=== PATIENT | female | born 1960 | race Caucasian/White ===

== ENCOUNTER 2018-01-02 18:31 | Emergency (ER) | payer MEDICAID ==
[2018-01-02] MEDS ORDERED: NORMAL SALINE 1000 ML 1,000 ML IV ONE (19:43)
--- NOTE | 2018-01-02 19:45 | ER Document Report ---
ED Medical Screen (RME) - General Chief Complaint: Flu Symptoms Stated Complaint: FLU LIKE SYMPTOMS Time Seen by Provider: 01/02/18 19:43 Notes: Patient has a history of breast cancer with mastectomy. This was 10 years ago. No radiation or chemotherapy were performed. She also states she had a stroke in 2003 that initially caused her to have some balance issues but no longer bothers her. She states that her blood pressure normally runs low but she is not sure how low. She states that she has had cough congestion fevers chills weakness malaise and vomiting. TRAVEL OUTSIDE OF THE [place] IN LAST 30 DAYS: No - Related Data Allergies/Adverse Reactions: No Known Allergies Allergy (Unverified 01/02/18 18:40) Past Medical History - Social History Frequency of alcohol use: None Drug Abuse: None Renal/ Medical History: Denies: Hx Peritoneal Dialysis Physical Exam - Vital signs Vitals: Temp Pulse Resp BP Pulse Ox 98.8 F 85 18 98/59 L 93 01/02/18 18:55 01/02/18 18:55 01/02/18 18:55 01/02/18 18:55 01/02/18 18:55 Course - Vital Signs Vital signs: Temp Pulse Resp BP Pulse Ox 98.8 F 85 18 98/59 L 93 01/02/18 18:55 01/02/18 18:55 01/02/18 18:55 01/02/18 18:55 01/02/18 18:55
[2018-01-02 20:16] LABS: VENOUS BLOOD BASE EXCESS 4.1 mmol/L; VENOUS BLOOD PCO2 55.6 mmHg (35-63); VENOUS BLOOD PH 7.36 (7.30-7.42)
[2018-01-02 20:26] LABS: ABSOLUTE LYMPHOCYTES (AUTO) 0.7 10^3/uL (0.5-4.7); ABSOLUTE NEUT (AUTO) 3.9 10^3/uL (1.7-8.2); BASOPHILS % (AUTO) 0.1 % (0-2); HEMATOCRIT 43.5 % (36.0-47.0); HEMOGLOBIN 14.9 g/dL (12.0-15.5); LYMPHOCYTES % (AUTO) 11.9 % (13-45); MEAN CORPUSCULAR HEMOGLOBIN 29.5 pg (27.0-33.4); MEAN CORPUSCULAR HGB CONC 34.2 g/dL (32.0-36.0); MEAN CORPUSCULAR VOLUME 86 fl (80-97); MONOCYTES % (AUTO) 18.6 % (3-13); PLATELET COUNT 252 10^3/uL (150-450); RED BLOOD COUNT 5.03 10^6/uL (3.72-5.28); RED CELL DISTRIBUTION WIDTH 13.1 % (11.5-14.0); SEGMENTED NEUTROPHILS % (AUTO) 69.4 % (42-78); TOTAL CELLS COUNTED % (AUTO) 100 %; WHITE BLOOD COUNT 5.6 10^3/uL (4.0-10.5)
[2018-01-02 20:38] LABS: ALANINE AMINOTRANSFERASE 25 U/L (9-52); ALBUMIN 4.6 g/dL (3.5-5.0); ALKALINE PHOSPHATASE 71 U/L (38-126); ANION GAP 11 (5-19); ASPARTATE AMINO TRANSFERASE 36 U/L (14-36); BILIRUBIN,DIRECT 0.5 mg/dL (0.0-0.4); BILIRUBIN,TOTAL 0.5 mg/dL (0.2-1.3); BLOOD UREA NITROGEN 25 mg/dL (7-20); CALCIUM 9.9 mg/dL (8.4-10.2); CARBON DIOXIDE 31 mmol/L (22-30); CHLORIDE 99 mmol/L (98-107); GLUCOSE 112 mg/dL (75-110); SODIUM 140.8 mmol/L (137-145); TOTAL PROTEIN 8.2 g/dL (6.3-8.2)
[2018-01-02 20:40] LABS: APPEARANCE,URINE CLOUDY; BILIRUBIN,URINE NEGATIVE (NEGATIVE); GLUCOSE, URINE NEGATIVE (NEGATIVE); KETONES,URINE TRACE mg/dL (NEGATIVE); LEUKOCYTE ESTERASE,URINE MODERATE (NEGATIVE); NITRITE,URINE NEGATIVE (NEGATIVE); PROTEIN,URINE 30 mg/dL (NEGATIVE); URINE SPECIFIC GRAVITY 1.035; UROBILINOGEN,URINE NEGATIVE mg/dL (<2.0)
[2018-01-02 20:43] LABS: COLOR,URINE YELLOW
--- NOTE | 2018-01-02 21:05 | RADIOLOGY REPORT (SQ) ---
EXAM DESCRIPTION: CHEST PA/LAT COMPLETED DATE/TIME: 01/02/2018 8:41 pm REASON FOR STUDY: sob/hypoxia COMPARISON: None. NUMBER OF VIEWS: Two view. TECHNIQUE: Frontal and lateral radiographic views of the chest acquired. LIMITATIONS: None. FINDINGS: LUNGS AND PLEURA: No opacities, masses or pneumothorax. No pleural effusion. Attenuated bl ood vessels and flattened izzy-diaphragms. MEDIASTINUM AND HILAR STRUCTURES: No masses. No contour abnormalities. HEART AND VASCULAR STRUCTURES: Heart normal in size and contour. No evidence for failure. BONES: No acute findings. HARDWARE: None in the chest. OTHER: No other significant finding. IMPRESSION: COPD. NO ACUTE RADIOGRAPHIC FINDING IN THE CHEST. TECHNICAL DOCUMENTATION: JOB ID: [id number] [employer]- All Rights Reserved
[2018-01-02] MEDS ORDERED: ONDANSETRON HCL INJ/PF 4 MG/2 ML SDV IV ONE (23:09)
--- NOTE | 2018-01-02 23:15 | ER Document Report ---
ED Flu Like - General Chief Complaint: Flu Symptoms Stated Complaint: FLU LIKE SYMPTOMS Time Seen by Provider: 01/02/18 19:43 Mode of Arrival: Ambulatory Information source: Patient TRAVEL OUTSIDE OF THE [place] IN LAST 30 DAYS: No - HPI Patient complains to provider of: flu symptoms Onset: Yesterday - pt with c/o cough, fever, generalized arthralgias and myalgias for the psat 2 days. Has been having decreased po intake for the past 1 -2 days and thinks she may be getting dehydrated - Related Data Allergies/Adverse Reactions: No Known Allergies Allergy (Unverified 01/02/18 18:40) Past Medical History - General Information source: Patient, Relative - Social History Smoking Status: Current Every Day Smoker Frequency of alcohol use: None Drug Abuse: None Family History: None Patient has suicidal ideation: No Patient has homicidal ideation: No Renal/ Medical History: Denies: Hx Peritoneal Dialysis Review of Systems - Review of Systems Constitutional: See HPI, Malaise, Weakness Cardiovascular: No symptoms reported Respiratory: No symptoms reported Gastrointestinal: No symptoms reported Musculoskeletal: No symptoms reported Neurological/Psychological: No symptoms reported -: Yes All other systems reviewed and negative Physical Exam - Vital signs Vitals: Temp Pulse BP Pulse Ox 98.8 F 86 98/59 L 92 01/02/18 18:54 01/02/18 18:54 01/02/18 18:54 01/02/18 18:54 - General General appearance: Appears well In distress: None - HEENT Head: Normocephalic Pharynx: Normal Neck: Normal - Respiratory Respiratory status: No respiratory distress Breath sounds: Normal - Cardiovascular Rhythm: Regular Heart sounds: Normal auscultation - Abdominal Inspection: Normal Tenderness: Nontender - Extremities General upper extremity: Normal inspection General lower extremity: Normal inspection - Neurological Neuro grossly intact: Yes Cognition: Normal Orientation: AAOx4 Speech: Normal Motor strength normal: LUE, RUE, LLE, RLE Course - Re-evaluation Re-evalutation: 01/02/18 23:41 pt. felt better after IVF and meds -- expressed desire to go home with son. - Vital Signs Vital signs: Temp Pulse Resp BP Pulse Ox 99.4 F 64 16 97/81 L 99 01/03/18 00:19 01/03/18 00:19 01/03/18 00:19 01/03/18 00:19 01/03/18 00:19 - Laboratory Result Diagrams: 01/02/18 20:01 01/02/18 20:01 Laboratory results interpreted by me: 01/02/18 01/02/18 01/02/18 20:01 20:01 20:08 Lymphocytes % 11.9 L Monocytes % 18.6 H Carbon Dioxide 31 H BUN 25 H Glucose 112 H Direct Bilirubin 0.5 H Urine Protein 30 H Urine Ketones TRACE H Urine Blood SMALL H Ur Leukocyte Esterase MODERATE H Discharge - Discharge Clinical Impression: Viral syndrome UTI (urinary tract infection) Qualifiers: Urinary tract infection type: site unspecified Hematuria presence: without hematuria Qualified Code(s): N39.0 - Urinary tract infection, site not specified Condition: Stable Disposition: HOME, SELF-CARE Instructions: Acetaminophen, Influenza ([facility]) [id number], Trimethoprim-Sulfa ([facility] ), Viral Syndrome ([facility]) Additional Instructions: rest,take meds as prescribed, return if worse Prescriptions: Oseltamivir Phosphate [Tamiflu 75 mg Capsule] 75 mg PO BID #10 capsule Promethazine HCl [Phenergan 25 mg Tablet] 25 - 50 mg PO ASDIR PRN #12 tablet PRN Reason: Sulfamethoxazole/Trimethoprim [Bactrim Ds Tablet] 1 each PO BID #10 tablet Referrals: LINSEY HARLEY MD [ACTIVE STAFF] - Follow up as needed
[2018-01-03 00:58] VITALS: BP 97/81
== END 2018-01-03 00:25 | disposition home or self-care (01) ==
LOC: ER 18:31
DX: N39.0 Urinary tract infection, site not specified (principal); B34.9 Viral infection, unspecified; R05 Cough; R50.9 Fever, unspecified; R53.1 Weakness; R11.10 Vomiting, unspecified; R53.81 Other malaise; Z85.3 Personal history of malignant neoplasm of breast; Z90.10 Acquired absence of unspecified breast and nipple
CPT/HCPCS: 94640; 99284; 96361; 96374; 36415; 87040; 87086; 85025; 87077; 80053; 81001; 87186; 82803; 83605; 71046; J2405; J7030